=== PATIENT | male | born 2000 | race Caucasian/White ===

== ENCOUNTER 2025-06-04 07:01 | Emergency (ER) | payer OTHER ==
[2025-06-04 07:51] LABS: #Basophils Less than 0.03 10x3/uL (0.0-0.2); #Eosinophils Less than 0.03 10x3/uL (0.0-0.7); #Monocytes 0.67 10x3/uL (0.11-0.59); #Neutrophils 6.08 10x3/uL (1.40-6.50); %Basophils 0.1 % (0.0-1.0); %Eosinophils 0.3 % (0.0-10.0); %Lymphocytes 5.3 % (21.0-51.0); %Monocytes 9.3 % (0.0-10.0); %Neutrophils 84.9 % (42.0-75.0); Hematocrit 45.8 % (42.0-52.0); Hemoglobin 15.9 g/dL (14.0-18.0); Mean Corpuscular Hemoglobin 28.1 pg (27.0-31.0); Mean Corpuscular Volume 81.1 fL (78.0-98.0); Platelet Count 273 10x3/uL (130-400); Red Blood Cell (RBC) Count 5.65 mill/uL (4.70-6.10); White Blood Cell (WBC) Count 7.17 10x3/uL (4.8-10.8)
[2025-06-04] MEDS ORDERED: Ondansetron PF 4 MG/2 ML Vial ONE (07:53)
[2025-06-04] MEDS ORDERED: diphenhydrAMINE 50 MG/ML VIAL ONE (08:06)
[2025-06-04 08:08] LABS: ALT (SGPT) 17 U/L (Less than 45); AST (SGOT) 26 U/L (11-34); Albumin 5.1 g/dL (3.1-4.5); Alkaline Phosphatase 85 U/L (40-110); Anion Gap 20 mmol/L (10-20); BUN (Urea Nitrogen) 18 mg/dL (8.9-20.6); Bilirubin, Total 1.3 mg/dL (0.3-1.2); Calc. Creatinine Clearance 0 mL/min (70-130); Calcium 10.5 mg/dL (7.8-10.44); Carbon Dioxide 22 mmol/L (22-29); Chloride 104 mmol/L (98-107); Globulin 2.7 g/dL (2.4-3.5); Glucose 128 mg/dL (70-105); Lipase 21 U/L (8-78); Magnesium 1.6 mg/dL (1.6-2.6); Potassium 4.1 mmol/L (3.5-5.1); Sodium 142 mmol/L (136-145)
[2025-06-04 08:32] LABS: INR-International Normal Ratio 1.2; PTT 26.5 sec (22.9-36.1); Prothrombin Time 14.9 sec (12.0-14.7)
== END 2025-06-04 09:38 | disposition home or self-care (01) ==
LOC: ERS 07:01
DX: R11.2 Nausea with vomiting, unspecified (principal); R29.0 Tetany
CPT/HCPCS: 80053; 83690; 83735; 84484; 85025; 85610; 85730; 93005; 96361; 96374; 96375; J1200; J2405